=== PATIENT | female | born 1980 | race African-American/Black ===

== ENCOUNTER 2016-12-01 17:13 | Emergency (ER) | payer SELFPAY ==
[2016-12-01 17:20] VITALS: BP 101/57; BMI 23.7
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
== END 2016-12-01 18:57 | disposition home or self-care (01) ==
LOC: ER 17:26
DX: M61.40 Other calcification of muscle, unspecified site (principal); M16.11 Unilateral primary osteoarthritis, right hip
CPT/HCPCS: 73700; 99283

== ENCOUNTER → 2017-06-05 | Outpatient (CLI) | payer SELFPAY ==
[2017-06-05 09:02] LABS: BASOPHILS # (AUTO) 0.1 X10^3/uL (0.0-0.1); BASOPHILS % (AUTO) 2.1 % (0.2-1.0); EOSINOPHILS # (AUTO) 0.2 x10^3/uL (0.0-0.2); EOSINOPHILS % (AUTO) 3.7 % (0.9-2.9); HEMATOCRIT 37.7 % (36.0-47.0); LYMPHOCYTES # (AUTO) 1.9 X10^3/uL (1.3-2.9); LYMPHOCYTES % (AUTO) 30.4 % (21.0-51.0); MEAN CORPUSCULAR HEMOGLOBIN 29.3 pg (27.0-34.0); MEAN CORPUSCULAR HGB CONC 34.4 g/dL (33.0-35.0); MEAN CORPUSCULAR VOLUME 85.2 fL (80.0-100.0); MONOCYTES # (AUTO) 0.5 x10^3/uL (0.3-0.8); MONOCYTES % (AUTO) 8.4 % (0.0-13.0); NEUTROPHILS # (AUTO) 3.4 x10^3/uL (2.2-4.8); NEUTROPHILS % (AUTO) 55.4 % (42.0-75.0); PLATELET COUNT 307 X10^3/uL (150.0-450.0); RED BLOOD COUNT 4.43 X10^6/uL (3.5-5.4); RED CELL DISTRIBUTION WIDTH 13.4 % (11.6-16.5); WHITE BLOOD COUNT 6.1 X10^3/uL (3.6-10.0)
== END ==
LOC: LAB 08:42
PROVIDERS: ATTEND Plastic Surgery
DX: Z00.00 Encounter for general adult medical examination without abnormal findings (principal)
CPT/HCPCS: 36415; 84702; 85025